=== PATIENT | male | born 1955 | race Caucasian/White ===

== ENCOUNTER → 2018-01-23 | Day surgery (SDC) | payer BC ==
[2018-01-22 16:40] LABS: BASOPHILS % 0.6 % (0.0-1.0); EOSINOPHILS # (AUTO) 0.2 (0.0-0.4); EOSINOPHILS % 3.1 % (0.0-6.0); HEMATOCRIT 44.8 % (38.2-49.6); HEMOGLOBIN 14.6 g/dL (14.0-18.0); LYMPHOCYTES # (AUTO) 2.8 (1.0-3.2); LYMPHOCYTES % 41.5 % (18.0-39.1); MEAN CORPUSCULAR HEMOGLOBIN 30.7 pg (28-32); MEAN CORPUSCULAR HGB CONC 32.6 g/dL (31-35); MEAN CORPUSCULAR VOLUME 94.1 fL (81-99); MONOCYTES # (AUTO) 0.8 (0.2-0.8); MONOCYTES % 11.1 % (4.4-11.3); NEUTROPHILS # (AUTO) 2.9 (2.1-6.9); NEUTROPHILS % 43.3 % (38.7-80.0); PLATELET COUNT 159 x10e3/uL (140-360); RED BLOOD COUNT 4.76 x10e6/uL (4.3-5.7); RED CELL DISTRIBUTION WIDTH 13.2 % (11.7-14.4)
[2018-01-22 16:53] LABS: INR 1.06
[2018-01-22 17:04] LABS: ALBUMIN/GLOBULIN RATIO 1.1 (0.8-2.0); ANION GAP 15.5 mmol/L (8-16); CALCIUM 9.8 mg/dL (8.4-10.2); CHOL/HDL RATIO 2.9 (3.9-4.7); CREATININE, SERUM 1.47 mg/dL (0.72-1.25); POTASSIUM 4.5 mmol/L (3.5-5.1)
[2018-01-23] VITALS (9 sets, daily range): BP systolic 89–126; BP diastolic 61–85
[~2018-01-23] VITALS: Ht 182.9 cm; Wt 98.4 kg
[~2018-01-23] MED LIST: AFREZZA; ALPRAZOLAM 0.5 MG TAB ONE; ASPIRIN ENTERI325 MG PO; ATORVASTATIN CA20 MG PO; D3 + K2 DOTS 11 EACH PO; DIPHENHYDRAMINE HCL 25 MG CAP ONE; EFFIENT10 MG PO; FENTANYL CITRATE/PF 100MCG/2 ML INJ ONE; GLIMEPIRIDE4 MG PO; HEPARIN SOD/SOD CHLORIDE 2,000 ML ONE; HUMALOG100 UNIT/1; IOPAMIDOL 300MG/ML 100 ML INFUS..BTL IV ONE; LASIX20 MG PO; LIDOCAINE HCL 2% LOCAL 20 ML VIAL ONE; METFORMIN HCL500 MG PO; METOPROLOL SUCC50 MG PO; MIDAZOLAM HCL 2 MG/2 ML VIAL ONE; SODIUM CHLORIDE 0.9% 1000ML 1,000 ML ONE; VALSAR; [UNRECOGNIZED DRUG - OTHER]
--- NOTE | 2018-01-23 16:25 | Operative Report ---
DATE OF PROCEDURE: January 23, 2018 INDICATIONS: 1. Peripheral arterial disease. 2. Claudication of the left lower extremity. PROCEDURES PERFORMED: 1. Abdominal aorta catheter placement, abdominal aortogram. 2. Third-order catheter placement from the right femoral artery to left superficial femoral artery. 3. Additional 3rd-order catheter placement from the right femoral artery to the left posterior tibial artery. 4. Bilateral lower extremity angiograms. 5. Atherectomy and drug-coated balloon angioplasty of the left femoral artery. 6. Secondary thrombectomy of the left femoral artery. 7. Deployment of right groin Mynx closure device. COMPLICATIONS: None. RECOMMENDATIONS: Medical therapy including dual antiplatelet therapy. BLOOD LOSS: 10 mL. Access obtained in the right femoral artery. Abdominal aorta catheter placement revealed mild disease in the iliacs bilaterally. Abdominal aorta was widely patent. Proximal femoral arteries were widely patent. However, mid and distal left femoral artery was not well visualized. The catheter was then advanced from the right femoral artery to the left superficial femoral artery confirming 80% stenosis of the mid left popliteal artery, infrapopliteal vessels were not well seen. The catheter was then advanced from the right femoral artery to the left posterior tibial artery confirming 3 vessel runoff to the left foot. Right leg angiogram demonstrated 50% stenosis in the right mid superficial femoral artery with 3-vessel runoff to the right foot. A decision was made to intervene on the popliteal artery in the left leg. The patient received 10,000 units of intra-arterial heparin, oral Effient for anticoagulation. The sheath was exchanged to a 45 cm 6-[place] sheath advanced from the right femoral artery to the left superficial femoral artery. Orbital atherectomy using a 2 mm Zinc was performed. Large amounts of visible thrombus for which manual aspiration thrombectomy was required. Balloon angioplasty with a 6 mm Lutonix balloon. Excellent end result, less than 10% mid stenosis 3 vessel runoff. Right leg sheath was repaired using Mynx closure device. Patient was discharged home same day. Job#: [id number]
== END | disposition home or self-care (01) ==
LOC: CATH LAB 11:56
PROVIDERS: ATTEND Internal Medicine Interventional Cardiology
DX: I70.212 Atherosclerosis of native arteries of extremities with intermittent claudication, left leg (principal); I25.118 Atherosclerotic heart disease of native coronary artery with other forms of angina pectoris; I25.2 Old myocardial infarction; I11.0 Hypertensive heart disease with heart failure; I50.23 Acute on chronic systolic (congestive) heart failure; E10.9 Type 1 diabetes mellitus without complications; Z01.812 Encounter for preprocedural laboratory examination; Z79.4 Long term (current) use of insulin; Z79.82 Long term (current) use of aspirin
CPT/HCPCS: 36415; 37186; 37225; 75625; 75716; 80053; 80061; 85025; 85610; C1724; C1725; C1769 ×2; C1887; J2001; J2250; J7030; Q9967

== ENCOUNTER → 2018-12-11 | Day surgery (SDC) | payer BC ==
[2018-12-07 10:33] LABS: BASOPHILS % 0.5 % (0.0-1.0); EOSINOPHILS # (AUTO) 0.2 (0.0-0.4); HEMOGLOBIN 16.6 g/dL (14.0-18.0); LYMPHOCYTES # (AUTO) 2.9 (1.0-3.2); LYMPHOCYTES % 36.2 % (18.0-39.1); MEAN CORPUSCULAR HEMOGLOBIN 30.4 pg (28-32); MEAN CORPUSCULAR HGB CONC 33.2 g/dL (31-35); MEAN CORPUSCULAR VOLUME 91.6 fL (81-99); MONOCYTES # (AUTO) 0.7 (0.2-0.8); MONOCYTES % 9.3 % (4.4-11.3); NEUTROPHILS % 50.6 % (38.7-80.0); PLATELET COUNT 184 x10e3/uL (140-360); RED BLOOD COUNT 5.46 x10e6/uL (4.3-5.7); RED CELL DISTRIBUTION WIDTH 13.2 % (11.7-14.4)
[2018-12-07 10:53] LABS: ALBUMIN 4.3 g/dL (3.5-5.0); ALBUMIN/GLOBULIN RATIO 1.2 (0.8-2.0); CALCIUM 10.4 mg/dL (8.4-10.2); CREATININE, SERUM 1.39 mg/dL (0.72-1.25)
[2018-12-11] VITALS (13 sets, daily range): BP systolic 99–157; BP diastolic 58–77
[~2018-12-11] VITALS: Ht 182.9 cm; Wt 99.8 kg
[~2018-12-11] MED LIST changes: +AFREZZA INH; -ALPRAZOLAM 0.5 MG TAB ONE; +ASPIRIN 325 MG TAB ONE; +BIVALRIUDIN 250 MG/VIAL VIAL IV ONE; -DIPHENHYDRAMINE HCL 25 MG CAP ONE; +ENTRESTO PO; +HEPARIN SOD (PORCINE) 1000 UNIT/ML 30ML ONE; -IOPAMIDOL 300MG/ML 100 ML INFUS..BTL IV ONE; +IOPAMIDOL 370 MG/ML 200 ML INFUS..BTL INJ ONE; +JARDIANCE PO; +NITROGLYCERIN/D5W 200 MCG/ML 250 ML ONE; +PRASUGREL 10 MG TAB ONE; +SODIUM CHLORIDE 0.9% 50ML 50 ML ONE; +VASCEPA PO; +VERAPAMIL HCL 2.5 MG/ML 2 ML VIAL ONE; +VITAMIN D32000 UNIT PO
--- OUTSIDE RECORDS SUMMARY | 2018-12-11 06:39 | XMS REPORT | Continuity of Care Document ---
Author Author [facility] Organization [facility] Address Unknown Phone Unavailable Care Team Providers Care Cds Sales Advisor Name Role Phone [employer] [facility] Unavailable Unavailable Problems Problem Status Onset Date Classification Date Reported Comments Source E04.2 - NONTOXIC MULTINODULAR GOITER Active 04/13/2016 [facility] [place] Medications No Data Provided for This Section Allergies, Adverse Reactions, Alerts No Known Medication Allergies Immunizations No Data Provided for This Section Results No Data Provided for This Section Pathology Reports No Data Provided for This Section Diagnostic Reports Report Value Date Source Thyroid US Clinical Indication: Goiter. Cortical history 60-year-old male with a goiter for follow-up. Comparison: Thyroid ultrasound 06/20/2014 TECHNIQUE: Sonographic evaluation of the thyroid gland is performed FINDINGS: The right thyroid gland measures 4.4 x 2.3 x 1.2cm. The left thyroid gland measures 5.0 x 2.1 x 1.6cm. The thyroid isthmus is unremarkable and measures 0.3cm. There is normal bilateral thyroid gland contour and morphology. There is normal thyroid parenchymal echotexture. Nodules: RIGHT: Again seen is a predominantly cystic lesion with a nodular component medially in the right lobe extending slightly into the isthmus that has increased in size to 10 mm x 5 mm x 9 mm that previously measured 8 mm x 4.5 x 7.5 mm LEFT: A 2.6 x 1.1 x 2.1 mm hypoechoic focus is seen in the upper pole of the left lobe. There is no adjacent jugular chain lymphadenopathy. IMPRESSION: 1. The thyroid is slightly larger on today's examination than measured previously 06/20/2014, especially the left lobe. 2. The predominantly cystic focus with a small nodule within it is seen medially in the mid to lower right lobe extending into the isthmus that is slightly larger than seen on the previous examination dated 06/20/2014.This lesion does not meet biopsy criteria as described below. Recommendations for Thyroid Nodules 1 cm or Larger in Maximum Diameter: AJR: 178July 2001 ULTRASOUND FEATURE RECOMMENDATION Solitary Nodule - Microcalcifications - Strongly consider US-guided FNA if > 1 cm - Solid or coarse calcifications - Strongly consider US-guided FNA if > 1.5 cm - Mixed solid and cystic - Consider US-guided FNA if > 2cm - None of the above but substantial growth - Consider US-guided FNA - Almost entirely cystic and none of the above - US-guided FNA probably unnecessary Multiple Nodules - Consider US-guided FNA of one or more nodules, with selection prioritized on basis of criteria (in order listed) for solitary nodule. SL: [id number] 04/22/2016 [facility] [place] Consultation Notes No Data Provided for This Section Discharge Summaries No Data Provided for This Section History and Physicals No Data Provided for This Section Vital Signs No Data Provided for This Section Encounters Location Location Details Encounter Type Encounter Number Reason For Visit Attending Provider ADM Date DC Date Status Source Outpatient [id number] YENNI SHIVER 03/12/2015 [facility] [id number] YENNI SHIVER 06/10/2015 [facility] [id number] YENNI SHIVER 09/22/2015 [facility] [id number] YENNI SHIVER 12/22/2015 [facility] [id number] YENNI SHIVER 03/17/2016 [facility] [id number] YENNI SHIVER 06/08/2016 [facility] [id number] YENNI SHIVER 06/08/2016 [facility] [id number] YENNI SHIVER 09/12/2016 [facility] [id number] YENNI SHIVER 11/14/2016 [facility] [id number] YENNI SHIVER 05/03/2017 [facility] [id number] YENNI SHIVER 08/01/2017 [facility] [id number] YENNI SHIVER 11/13/2017 [facility] [id number] YENNI SHIVER 02/05/2018 [facility] [id number] YENNI SHIVER 06/06/2018 [facility] [id number] Yenni Shiver 08/21/2018 [facility] [id number] Yenni Shiver 09/18/2018 [facility] [id number] Yenni Shiver 12/20/2018 [facility] Procedures No Data Provided for This Section Assessment and Plan No Data Provided for This Section Plan of Care No Data Provided for This Section Social History No Data Provided for This Section Family History No Data Provided for This Section Advance Directives No Data Provided for This Section Functional Status No Data Provided for This Section
--- OUTSIDE RECORDS SUMMARY | 2018-12-11 06:39 | XMS REPORT | Clinical Summary ---
Author Author [facility] Address Unknown Phone Unavailable Care Team Providers Care Chief Of Harbor Patrol Name Role Phone Dewayne Snow 3 StephanieSerenity Erickson 3 Julio Martinez PCP Unavailable Allergies No Known Allergies Medications End Date Status Medication Sig Dispensed Refills Start Date Active aspirin 325 MG EC tablet Take 325 mg 0 by mouth daily. Active PRASUGREL HCL (PRASUGREL Take 10 mg by 0 ORAL) mouth daily. Active sacubitril-valsartan Take 1 tablet 0 (ENTRESTO) 24-26 mg Tab by mouth 2 (two) times daily. Active ATORVASTATIN CALCIUM Take 40 mg by 0 (ATORVASTATIN ORAL) mouth daily. Active furosemide (LASIX) 20 MG Take 20 mg by 0 tablet mouth daily. Active metoprolol (TOPROL-XL) 50 Take 50 mg by 0 MG 24 hr tablet mouth daily. Active metFORMIN (GLUMETZA) 500 Take 1,000 mg 0 MG (MOD) 24 hr tablet by mouth 2 (two) times daily with breakfast and dinner. Active glimepiride (AMARYL) 4 MG Take 8 mg by 0 tablet mouth every morning before breakfast. Active cholecalciferol, vitamin Take 4,000 0 D3, 2,000 unit Tab Units by mouth daily . Active empagliflozin (JARDIANCE) Take 25 mg by 0 25 mg tablet mouth daily. Active insulin glargine (TOUJEO Inject 80 0 SOLOSTAR) 300 unit/mL Units (1.5 mL) InPn syringe subcutaneousl y daily. Active ALPRAZolam (XANAX) 0.5 MG Take 1 tablet 4 tablet 0 tablet (0.5 mg 8 total) by mouth as directed for 4 doses 1 tablet in am on 06/09/2017, then as directed.. Active Problems Patient Care Coordination Note Name: Kendall Almonte : 1955 61 y.o. Facility: [facility] History of Present Illness: He has chronic systolic heart failure due to anterolateral STEMI on 04/23/2012. At that time, cardiac catheterization demonstrated occluded proximal LAD, 50% ostial LMCA, 10-20% CFX, 80% non dominate mid RCA stenosis and LVEF 40-45%. He underwent successful atherectomy and stent revascularization of the proximal LAD. The procedure was complicated by multiple episodes of VF. Post procedure his EF dropped to 25% and in 09/2012 he underwent single chamber ICD implant for primary prevention. He has been free of further VF but does have NSVT by ICD interrogation. He continues to have symptomatic HF and low EF of 30-35% by echo in 06/2016. He self-referred for participation in a Stem Cell trial. His past medical history is outlined below and includes DM II, peripheral neuropathy, PVD, s/p right great toe amputation 2014 and FINAL ASSEMBLER of Rt.SFA 10/2016. He has HTN, dyslipidemia and a multinodular nontoxic goiter. Current Medications: Past Medical History: Anxiety and depression CAD (coronary artery disease) Anterolateral STEMI 04/23/2012 Chronic systolic heart failure (HCC) 03/2012 Dyslipidemia Hypertension Ischemic cardiomyopathy 06/02/2017 Non-toxic multinodular goiter Nonsustained ventricular tachycardia (HCC) Peripheral neuropathy (HCC) Peripheral vascular disease (HCC) s/p right 1st toe amputation 2014; FINAL ASSEMBLER/atherectomy Rt. SFA 10/2016 Type 2 diabetes mellitus (HCC) 2003 Ventricular fibrillation (HCC) 04/23/2012 Surgical History: Past Surgical History: Procedure Laterality Date BALLOON ANGIOPLASTY, ARTERY Right 11/01/2016 80% distal Rt. SFA, 50 % Lt. popliteal by angio 10/2016; s/p FINAL ASSEMBLER/atherectomy Rt. 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 Cardiac Catheterization ([facility]) 04/23/2012 Ostial LMCA - 50% Proximal LAD -100% CFX -10-20% Mid RCA (non-dominate) - 805 LVEF 40-45%, anteroapical hypokinesis Intervention: successful atherectomy/Resolute 3.0 x 18 mm stent proximal LAD ICD interrogation 10/19/2016 NSVT - 3 episodes, no therapies Assessment and Plan: Ischemic Cardiomyopathy / HFrEF NHYA class , stage C Current heart failure medications: Metoprolol ER 50 mg/d, lisinopril 5 mg/d, furosemide 20 mg/d Appears by physical exam CAD - on DAPT, statin and beta montserrat DM II - controlled on metformin ER, glimiperide, Invokana and Toujeo - HbA1C 6.8 on 06/06/2016 PVD - s/p FINAL ASSEMBLER rt. SFA 10/2016 Problem Noted Date Ischemic cardiomyopathy 06/02/2017 CAD (coronary artery disease) 06/02/2017 Family History Medical History Relation Name Comments Hypertension Father Diabetes Mother Heart disease Mother Relation Name Status Comments Father Mother Social History Date Tobacco Use Types Packs/Day Years Used Quit: 04/02/2012 Former Smoker Cigarettes 1.5 42 Smokeless Tobacco: Never Used Alcohol Use Drinks/Week oz/Week Comments No Sex Assigned at Date Recorded Not on file Industry Job Start Date Occupation Not on file Not on file Not on file Travel End Travel History Travel Start No recent travel history available. Last Filed Vital Signs Not on file Plan of Treatment Health Maintenance Due Date Last Done Comments INFLUENZA VACCINE 02/26/2018 Procedures Comments Procedure Name Priority Date/Time Associated Diagnosis ARRYTHMIA IMPLANT REPORT 03/16/2018 - SCAN 6:04 PM CDT ARRYTHMIA IMPLANT REPORT 03/16/2018 - SCAN 6:04 PM CDT after 12/10/2017 Results * ARRYTHMIA IMPLANT REPORT - SCAN (03/16/2018 6:04 PM CDT) Only the most recent of 2 results within the time period is included. Narrative Performed At after 12/10/2017 Insurance Payer Benefit Subscriber ID Type Phone Address Plan / Group BLUE CROSS/BLUE SHIELD BCBS PPO xxxxxxxxxxxx PPO [phone] [address] [place] [address] CHOICE
--- NOTE | 2018-12-11 09:00 | NUR ---
0900am bedside report received from Joel VILLALOBOS. Identiferx2 Rt radial T band 14cc LAD fix.Alert oriented and appropriate, PERRLA, respirations even and unlabored to room air. Pulses x4 extremities equal and strong. Pedal pulses PT/DP XXXXX and marked. Cap fill brisk < 3 sec. Back to baseline orientation. Explained DC plans to family and pt Md spoke with everyone. Copies of POC given to . Skin warm and dry integrity appears D/I. IV 20g to let wrist presents healthy w/o s/s of infiltration or complaint.Angio max completed and ok to remove air at 12noon tentative dc at 1200pm. Abdomen soft and supple. pt offered toileting, denies need to urinate or defecate. No personal affects with patient. Family Nuvia . Pt and family verbalizes understanding of POC. . Currently w/o complaint of pain or need. Patient introduced to cath team and brief summary provided to team. Transferred to procedure table under own strength w/o duress. Tolerating po intake and voided qs. ds/rené
--- NOTE | 2018-12-11 12:00 | NUR ---
1200 TR band with positive neuro vascular function. 14cc in TR band No oozing or hematoma. -2cc Positive 12cc 1215 -2cc Positive 10cc Normal neuro vascular function. 1230 -2cc Positive 8cc Normal neuro vascular function 1245 TR band off Sterile 2x2 Kerlix and Tegaderm with Coban dressing. Family remains at bedside. No gross issues pain pallor pressure or dysthrhmia ds/rn
--- NOTE | 2018-12-11 14:00 | NUR ---
1400 reviewed dc plans Has copies of POC aware of importance of f/o care. Escorted to car per w/c vs stable and no gross issues pain pallor pressure or dysrhythmia Iv removed and site covered with 2x2 and coban. DC with [facility] escort to private car, ds/rn
--- NOTE | 2018-12-11 14:45 | Operative Report ---
DATE OF PROCEDURE: 12/11/2018 SURGEON: Dewayne Snow MD INDICATION: Coronary artery disease, abnormal stress test, congestive heart failure and unstable angina. PROCEDURES PERFORMED: 1. Left heart catheterization, selective coronary angiography. 2. PTCA and stent placement to the proximal left anterior descending artery. 3. Deployment of right wrist TR band. COMPLICATIONS: None. RECOMMENDATIONS: Medical therapy. DESCRIPTION OF PROCEDURE: Access obtained in the right radial artery. A 5-Italian sheath was placed. Diagnostic coronary angiogram revealed 20% to 30% left main stenosis, ostial left anterior descending artery 50% stenosis. Stent in the proximal left anterior descending artery. Distal 80% end stent restenosis. Remaining left anterior descending artery had diffuse 30% to 50% stenosis. Circumflex was dominant with mild disease. Right coronary artery was nondominant. LV end-diastolic pressure of 14. No gradient across the aortic valve on pullback. A decision was made to intervene on the left anterior descending artery. The patient received intravenous Angiomax, oral Effient and aspirin for anticoagulation. The left main was cannulated using a 5-Italian EBU guiding catheter. A short roadrunner wire was advanced across the lesion. Predilatation with 2 mm balloon following which a single 2.5 x 16 mm [employer] Synergy stent was deployed at 14 atmospheres. Excellent end result, less than 10% residual stenosis, JUAN-3 flow. No complications. Right wrist guidewire sheath were removed. TR band applied. The patient discharged home same day. Dewayne Snow MD KSB/MODL /[id number]
== END | disposition home or self-care (01) ==
LOC: CATH LAB 06:20
PROVIDERS: ATTEND Internal Medicine Interventional Cardiology
DX: I25.110 Atherosclerotic heart disease of native coronary artery with unstable angina pectoris (principal); R94.39 Abnormal result of other cardiovascular function study; I11.0 Hypertensive heart disease with heart failure; I50.23 Acute on chronic systolic (congestive) heart failure; I25.2 Old myocardial infarction; I73.9 Peripheral vascular disease, unspecified; D51.0 Vitamin B12 deficiency anemia due to intrinsic factor deficiency; E13.40 Other specified diabetes mellitus with diabetic neuropathy, unspecified; E29.1 Testicular hypofunction; Z01.812 Encounter for preprocedural laboratory examination; Z79.84 Long term (current) use of oral hypoglycemic drugs; Z79.4 Long term (current) use of insulin; Z79.82 Long term (current) use of aspirin; Z79.899 Other long term (current) drug therapy; Z95.810 Presence of automatic (implantable) cardiac defibrillator; Z89.411 Acquired absence of right great toe
CPT/HCPCS: 36415; 80053; 85025; 92928; 93458; C1725; C1769; C1874; C1887; J0583; J1644; J2001; J2250; J3010; J7030; Q9967

== ENCOUNTER → 2022-06-14 | Day surgery (SDC) | payer MEDICARE ==
[2022-06-10 10:43] LABS: BASOPHILS # (AUTO) 0.1 (0.0-0.1); BASOPHILS % 0.9 % (0.0-1.0); EOSINOPHILS # (AUTO) 0.2 (0.0-0.4); EOSINOPHILS % 2.7 % (0.0-6.0); HEMATOCRIT 53.5 % (38.2-49.6); HEMOGLOBIN 16.6 g/dL (14.0-18.0); LYMPHOCYTES # (AUTO) 2.4 (1.0-3.2); LYMPHOCYTES % 31.8 % (18.0-39.1); MEAN CORPUSCULAR HEMOGLOBIN 30.5 pg (28-32); MEAN CORPUSCULAR VOLUME 98.2 fL (81-99); MONOCYTES # (AUTO) 0.6 (0.2-0.8); MONOCYTES % 8.5 % (4.4-11.3); NEUTROPHILS # (AUTO) 4.2 (2.1-6.9); NEUTROPHILS % 55.8 % (38.7-80.0); PLATELET COUNT 175 x10e3/uL (140-360); RED BLOOD COUNT 5.45 x10e6/uL (4.3-5.7); RED CELL DISTRIBUTION WIDTH 12.5 % (11.7-14.4)
[2022-06-10 11:10] LABS: ALBUMIN 4.3 g/dL (3.5-5.0); ALBUMIN/GLOBULIN RATIO 1.1 (0.8-2.0); ANION GAP 16.3 mmol/L (8-16); CREATININE, SERUM 1.14 mg/dL (0.72-1.25); POTASSIUM 4.3 mmol/L (3.5-5.1)
[~2022-06-14] VITALS: Ht 182.9 cm; Wt 83.9 kg
[2022-06-14] VITALS (12 sets, daily range): BP systolic 93–137; BP diastolic 53–87
[~2022-06-14] MED LIST changes: +ALPRAZOLAM 0.5 MG TAB ONE; -ASPIRIN 325 MG TAB ONE; -BIVALRIUDIN 250 MG/VIAL VIAL IV ONE; +DIPHENHYDRAMINE HCL 25 MG CAP ONE; +IOPAMIDOL 370 MG/ML 100 ML INFUS..BTL INJ ONE; -IOPAMIDOL 370 MG/ML 200 ML INFUS..BTL INJ ONE; +LIDOCAINE HCL 1% LOCAL INJ 20 ML VIAL ONE; -NITROGLYCERIN/D5W 200 MCG/ML 250 ML ONE; +OZEMPIC0.25 MG/0. SC; -PRASUGREL 10 MG TAB ONE; -SODIUM CHLORIDE 0.9% 50ML 50 ML ONE; +SPIRONOLACTONE25 MG PO
== END | disposition home or self-care (01) ==
LOC: CATH LAB 07:18
PROVIDERS: ATTEND Internal Medicine Interventional Cardiology
DX: I25.110 Atherosclerotic heart disease of native coronary artery with unstable angina pectoris (principal); R94.39 Abnormal result of other cardiovascular function study; I11.0 Hypertensive heart disease with heart failure; I50.40 Unspecified combined systolic (congestive) and diastolic (congestive) heart failure; E78.2 Mixed hyperlipidemia; E11.9 Type 2 diabetes mellitus without complications; Z71.82 Exercise counseling; Z71.3 Dietary counseling and surveillance; Z01.812 Encounter for preprocedural laboratory examination; Z79.4 Long term (current) use of insulin; Z79.82 Long term (current) use of aspirin; Z79.84 Long term (current) use of oral hypoglycemic drugs; Z79.85 Long-term (current) use of injectable non-insulin antidiabetic drugs; Z79.899 Other long term (current) drug therapy; Z95.810 Presence of automatic (implantable) cardiac defibrillator; Z87.891 Personal history of nicotine dependence
CPT/HCPCS: 36415 ×2; 80053; 80061; 82948; 85025; 93458; C1887; J1644; J2001 ×2; J2250; J3010; J7030; Q9967; 99152; 99153